=== PATIENT | female | born 1970 | race Caucasian/White ===

== ENCOUNTER 2016-11-14 22:26 | Emergency (ER) | payer MEDICARE, MEDICAID ==
[~2016-11-14] VITALS: Ht 167.6 cm; Wt 61.4 kg
[2016-11-14 22:33] VITALS: BP 178/116; PULSE 104; RESP 18; O2SAT 100
[2016-11-14 23:46] LABS: APPEARANCE,URINE CLEAR (CLEAR,HAZY); COLOR,URINE DARK YELLOW (YELLOW); OCCULT BLOOD,URINE NEGATIVE (NEGATIVE); UROBILINOGEN,URINE NORMAL (NORMAL); YEAST,URINE MODERATE (NONE SEEN)
[2016-11-15 00:23] LABS: BASOPHILS % (AUTO) 0.6 % (0-3); EOSINOPHILS % (AUTO) 2.4 % (0-5); MONOCYTES % (AUTO) 10.3 % (4-12); Mean Corpuscular Hemoglobin 27.9 pg (27.0-35.0); Mean Corpuscular Volume 82.2 fL (81-100); NEUTROPHILS % (AUTO) 59.7 % (40-74); Platelet Count 236 bil/L (150-400)
--- NOTE | 2016-11-15 00:38 | ED.REPORT ---
HPI-General Illness Date of Service Nov 15, 2016 ED Provider: Topher Macario MD Patient is a 46 year old female with a hx of breast cancer who presents to the ED complaining of sudden onset lower back pain while sitting this evening. She describes her pain as aching, spasm-like, and 10/10 in severity. She was worried that her symptoms were related to a UTI she was diagnosed with 5 days ago. She denies bladder or bowel incontinence, urinary retention, saddle anesthesia, or any other symptoms. Nursing Notes Stated Complaint: POSS UTI/BACK PAIN Chief Complaint: Back Pain or Injury Nursing Notes Reviewed: Yes Allergies: Coded Allergies: No Known Allergies (Unverified , 11/14/16) Scheduled PRN Cyclobenzaprine (Cyclobenzaprine) 5 Mg Tablet 5 MG PO TID PRN PRN Spasm General Time Seen by MD: 00:35 Chief Complaint Back pain Hx Obtained From: Patient Arrived By: Walk-in Sudden in Onset?: Yes Past Medical History Past Medical History Breast cancer Past Surgical History Hip replacements Breast reconstruction Reports: Appendectomy Ambulatory Status Independent Review of Systems -saddle anesthesia Full Review of Systems Female: Denies: Urination decreased Musculoskeletal: Reports: Back pain Neurologic: Denies: Bladder dysfunction, Bowel dysfunction Complete sys rev & neg: except as marked. Physical Exam Nursing note and vitals reviewed. Constitutional: Well-developed, well-nourished. Not diaphoretic. Head: Normocephalic and atraumatic. Eyes: EOM are normal. Pupils are equal, round, and reactive to light. Neck: Supple, no tracheal deviation. Cardiovascular: Normal rate, regular rhythm. Abdominal: Soft. No distension. There is no tenderness, rebound, or guarding.. Musculoskeletal: Range of motion grossly intact, moving all extremities. Back: Lumbar paraspinal tenderness without point tenderness in the midline. Neurological: AOx3. Grossly nonfocal exam. Strength and sensation intact and equal to bilateral upper and lower extremities. Skin: Warm and dry, no rashes or pallor appreciated. Psychiatric: Appropriate mood and affect. Behavior appears normal. Vital Signs Vital Signs Date Time Temp Pulse Resp B/P Pulse Ox O2 Delivery O2 Flow Rate FiO2 11/15/16 02:19 36.5 104 18 178/116 100 Room Air 11/14/16 22:33 36.5 104 18 178/116 100 Room Air Initial VS: Reviewed, Vital signs abnormal Interpretation & Diagnostics Lab Results Interpretation Result Diagram: 11/15/16 0015 11/15/16 0015 Test 11/14/16 23:21 11/15/16 00:15 Urine Color Dark yellow (YELLOW) Urine Appearance Clear (CLEAR,HAZY) Urine pH 5.0 (5.0-8.0) Urine Specific Gill 1.030 (1.003-1.035) Urine Protein Negativemg/dL (NEG,TRACE) Urine Glucose (UA) Negativemg/dL (NEGATIVE) Urine Ketones Negativemg/dL (NEGATIVE) Urine Occult Blood Negative (NEGATIVE) Urine Nitrite Negative (NEGATIVE) Urine Bilirubin Negative (NEGATIVE) Urine Urobilinogen Normalmg/dL (NORMAL) Urine Leukocyte Esterase Negative (NEGATIVE) Urine RBC 0-2/hpf (0-2) Urine WBC 0-5/hpf (0-5) Urine Epithelial Cells Moderate/hpf (NONE-MOD) Urine Crystals None seen (NONE SEEN) Urine Bacteria Few/hpf (NONE-FEW) Urine Hyaline Casts None/lpf (NONE) Urine Granular Casts None seen (NONE SEEN) Urine Waxy Casts None seen (NONE SEEN) Urine Red Blood Cell Casts None seen (NONE SEEN) Urine White Blood Cell Casts None seen (NONE SEEN) Urine Mucus Present (None Seen) Urine Trichomonas None seen (NONE SEEN) Urine Yeast Moderate (NONE SEEN) Urinalysis Comment None Urine Culture Reflexed Not indicated Hold Urine Received (Received) White Blood Count 8.2th/mm3 (3.8-10.1) Red Blood Count 4.66mil/mm3 (3.90-5.20) Hemoglobin 13.0g/dL (12.0-15.6) Hematocrit 38.3% (35.0-46.0) Mean Corpuscular Volume 82.2fL (81-100) Mean Corpuscular Hemoglobin 27.9pg (27.0-35.0) Mean Corpuscular Hemoglobin Concent 33.9% (32.0-37.0) Red Cell Distribution Width 16.6% (12.3-15.4) Platelet Count 236bil/L (150-400) Neutrophils (%) (Auto) 59.7% (40-74) Lymphocytes (%) (Auto) 26.9% (14-46) Monocytes (%) (Auto) 10.3% (4-12) Eosinophils (%) (Auto) 2.4% (0-5) Basophils (%) (Auto) 0.6% (0-3) Sodium Level 137mEq/L (134-144) Potassium Level 3.9mEq/L (3.5-5.2) Chloride Level 100mEq/L (97-108) Carbon Dioxide Level 26mmol/L (18-29) Blood Urea Nitrogen 14mg/dL (6-24) Creatinine 0.74mg/dL (0.57-1.00) Estimat Glomerular Filtration Rate 121mL/min (>59) Glucose Level 81mg/dL (60-99) Calcium Level 9.3mg/dL (8.5-10.1) Total Bilirubin 0.3mg/dL (0.0-1.2) Aspartate Amino Transf (AST/SGOT) 14U/L (0-50) Alanine Aminotransferase (ALT/SGPT) 10U/L (0-32) Alkaline Phosphatase 65U/L (25-150) Total Protein 7.3g/dL (6.4-8.4) Albumin 4.2g/dL (3.4-5.0) Re-Eval/Medical Decision Med Decision/Clinical Course 46-year-old female presenting to the ED for evaluation of back pain that started earlier this evening. She has had a UTI that is being treated, UA is reassuring without evidence of bacterial infection, no CVA tenderness appreciated. No blood in the urine. She has no bowel or bladder incontinence and no abdominal tenderness. No recent fevers, no perineal anesthesia. Her symptoms do seem most consistent with a musculoskeletal strain at this time. Given Flexeril here in the ED. Plan discharge with careful return precautions, PCP follow-up. Patient agreeable to the plan as stated, no further questions Time of Eval: 02:17 Re-Evaluation/Progress Note: Discussed plan for discharge. Patient understands and agrees with plan. All questions addressed at this time. Counseled Regarding: Diagnosis, Lab results, Need for follow-up, When/why to return to ED Discharge & Departure Primary Impression: Back pain Back pain location: low back pain Chronicity: acute Back pain laterality: unspecified Sciatica presence: without sciatica Qualified Code: M54.5 - Low back pain Disposition: Home Discharge Condition All VS Reviewed: Yes Condition: Improved Patient Instructions: Acute Low Back Pain (ED) Additional Instructions: You have been seen in the emergency department for evaluation of pain in your back. At this time, I think the most likely cause of this pain is a muscle strain, however I would like you to follow up with your regular doctor in the next several days to discuss today's visit. Please return to the emergency department immediately if you developed fever, chills, abdominal pain, bowel or bladder problems, or if there is anything else of concern to you. Thank you for the opportunity to be a part of your care. Referrals: [facility] (PCP) Scribe Attestation Portions of this note were transcribed by Jeramie Arias. I, Dr. Macario personally performed the history, physical exam and medical decision-making; I reviewed and confirmed the accuracy of the information in the transcribed note. Signed by: Jeramie Arias 11/15/16, 1432 copies to: [facility] Topher Macario MD Nov 15, 2016 00:38 JERAMIE ARIAS Nov 15, 2016 02:12
[2016-11-15] MEDS ORDERED: CYCL5TAB PO (02:16)
[2016-11-15 02:19] VITALS: BP 178/116; PULSE 104; RESP 18; O2SAT 100
== END 2016-11-15 02:17 | disposition home or self-care (01) ==
LOC: SED 22:26
DX: M54.5 Low back pain (principal); E78.5 Hyperlipidemia, unspecified; I10 Essential (primary) hypertension; F17.210 Nicotine dependence, cigarettes, uncomplicated; Z85.3 Personal history of malignant neoplasm of breast; Z90.89 Acquired absence of other organs; Z96.641 Presence of right artificial hip joint; Z86.2 Personal history of diseases of the blood and blood-forming organs and certain disorders involving the immune mechanism; Z87.440 Personal history of urinary (tract) infections